=== PATIENT | male | born 1965 | race African-American/Black ===

== ENCOUNTER 2017-11-12 11:58 | Emergency (ER) | payer MEDICAID ==
[~2017-11-12] VITALS: Ht 182.9 cm; Wt 110.0 kg
[2017-11-12] MEDS ORDERED: ASPIRIN 325MG EC TABLET PO ONE (13:00)
[2017-11-12 13:12] LABS: BASOPHILS % 0.4 % (0.0-2.0); HEMATOCRIT. 46.7 % (42.0-52.0); HEMOGLOBIN. 16.5 g/dL (14.0-18.0); LYMPHOCYTES % 29.7 % (20.0-50.0); MEAN CORPUSCULAR VOLUME 90.6 fL (80.0-94.0); MEAN PLATELET VOLUME 8.9 fl (7.4-10.4); NEUTROPHILS % 59.9 % (40.0-76.0); PLATELET 243 x1000/uL (130-400); RED BLOOD CELL COUNT 5.15 mill/uL (4.7-6.1); RED CELL DISTRIBUTION WIDTH 12.7 % (11.6-14.6)
[2017-11-12 13:25] LABS: CHLORIDE 107 mEq/L (98-107)
[2017-11-12 13:26] LABS: PROTHROMBIN TIME 10.7 sec (9.4-11.6)
[2017-11-12 14:15] LABS: *AMPHETAMINES SCREEN URINE NEGATIVE (NEGATIVE); *BARBITURATES SCREEN URINE NEGATIVE (NEGATIVE); *BENZODIAZEPINES SCREEN URINE NEGATIVE (NEGATIVE); *COCAINE SCREEN URINE NEGATIVE (NEGATIVE); CANNABINOID URINE SCREEN PRESUMTIVE POSITIVE (NEGATIVE); METHADONE URINE SCREEN NEGATIVE (NEGATIVE); OPIATES URINE SCREEN NEGATIVE (NEGATIVE); PHENCYCLIDINE URINE SCREEN NEGATIVE (NEGATIVE)
[2017-11-12 16:48] LABS: CLARITY URINE CLEAR (CLEAR); COLOR URINE YELLOW (YELLOW); KETONES URINE NEGATIVE (NEGATIVE); LEUKOCYTE ESTERASE URINE NEGATIVE (NEGATIVE); NITRITE URINE NEGATIVE (NEGATIVE); OCCULT BLOOD URINE NEGATIVE (NEGATIVE); PH URINE 8.5 (4.5-8.0); PROTEIN URINE NEGATIVE (NEGATIVE); SPECIFIC GRAVITY URINE 1.011 (1.005-1.030); UROBILINOGEN URINE 0.2 E.U./dL (0.2-1.0)
[2017-11-12] MEDS ORDERED: CLONIDINE 0.2MG TABLET PO ONE (17:00)
[2017-11-12] MEDS ORDERED: IPRATROPIUM/ALBUTEROL 0.5-3(2.5)MG/3ML NEB HHN ONE (18:15)
[2017-11-12 18:45] VITALS: BP 135/78
== END 2017-11-12 19:10 | disposition home or self-care (01) ==
LOC: ER 13:07
DX: J06.9 Acute upper respiratory infection, unspecified (principal); F12.10 Cannabis abuse, uncomplicated; E86.0 Dehydration; D72.821 Monocytosis (symptomatic); J44.9 Chronic obstructive pulmonary disease, unspecified; M19.90 Unspecified osteoarthritis, unspecified site; F17.200 Nicotine dependence, unspecified, uncomplicated; Z88.8 Allergy status to other drugs, medicaments and biological substances
CPT/HCPCS: 36415; 71045; 80053; 80305; 81003; 83880; 84484; 85025; 85610; 93005; 94640; 99285; J7620

== ENCOUNTER 2018-08-19 12:08 | Inpatient (IN) | payer SELFPAY ==
[~2018-08-19] VITALS: Ht 182.9 cm; Wt 116.6 kg
[2018-08-19] MEDS ORDERED: IPRATROPIUM BROMIDE (0.02%) 0.5MG/2.5ML NEB HHN STA (12:45)
[2018-08-19] MEDS ORDERED: ASPIRIN 81MG TABLET PO ONE (12:45)
[2018-08-19] MEDS ORDERED: METHYLPREDNISOLONE SOD SUCC 125 MG/2 ML VIAL IV STA (12:45)
[2018-08-19] MEDS ORDERED: ALBUTEROL (0.083%) 2.5MG/3ML NEB HHN STA (12:45)
[2018-08-19] MEDS ORDERED: CLONIDINE 0.1MG TABLET PO ONE (13:00)
[2018-08-19 14:56] LABS: BASOPHILS % 0.2 % (0.0-2.0); EOSINOPHILS % 1.2 % (0.0-5.0); HEMATOCRIT. 46.2 % (42.0-52.0); HEMOGLOBIN. 15.6 g/dL (14.0-18.0); LYMPHOCYTES % 27.9 % (20.0-50.0); MEAN CORPUSCULAR VOLUME 91.8 fL (80.0-94.0); MEAN PLATELET VOLUME 9.7 fl (7.4-10.4); MONOCYTES % 8.5 % (2.0-8.0); NEUTROPHILS % 62.2 % (40.0-76.0); PLATELET 239 x1000/uL (130-400); RED BLOOD CELL COUNT 5.03 mill/uL (4.7-6.1); RED CELL DISTRIBUTION WIDTH 12.6 % (11.6-14.6)
[2018-08-19 14:58] LABS: CHLORIDE 108 mEq/L (98-107)
[2018-08-19 15:01] LABS: PARTIAL THROMBOPLASTIN TIME 29.1 sec (23.4-31.0); PROTHROMBIN TIME 10.2 sec (9.1-11.1)
[2018-08-19] MEDS ORDERED: ALBUTEROL (0.5%) 2.5MG/0.5ML NEB HHN ONE (15:02)
[2018-08-19 21:50] VITALS: BP 162/76
[2018-08-19] MEDS ORDERED: IPRATROPIUM/ALBUTEROL 0.5-3(2.5)MG/3ML NEB INH PRN (22:45)
[2018-08-19] MEDS ORDERED: HYDROCODONE/APAP 7.5/325MG 1 TAB TABLET PO PRN (22:45)
[2018-08-19] MEDS ORDERED: HYDRALAZINE 20MG/ML VIAL IV PRN (22:45)
[2018-08-19] MEDS ORDERED: DIPHENHYDRAMINE 50MG/ML VIAL IV PRN (22:45)
[2018-08-19] MEDS ORDERED: ACETAMINOPHEN 650MG SUPP PR PRN (22:45)
[2018-08-19] MEDS ORDERED: ACETAMINOPHEN 325MG TABLET PO PRN (22:45)
[2018-08-19] MEDS ORDERED: MAGNESIUM/ALUMINUM HYDROXIDE/SIMETHICONE 30ML UDC PO PRN (22:45)
[2018-08-19] MEDS ORDERED: ONDANSETRON HCL 4MG/2ML INJ IV PRN (22:45)
[2018-08-19] MEDS ORDERED: DOCUSATE SODIUM 100MG CAPSULE PO PRN (22:45)
[2018-08-19] MEDS ORDERED: HYDROCODONE/ACETAMINOPHEN 5/325MG TABLET PO PRN (22:45)
[2018-08-19] MEDS ORDERED: NA PHOS,M-B/NA PHOS,DI-BA ENEMA 118ML PR PRN (22:45)
[2018-08-19] MEDS ORDERED: ACETAMINOPHEN 650MG/20.3ML UDC GT PRN (22:45)
[2018-08-19] MEDS ORDERED: GUAIFENESIN 200MG/10ML SUGAR FREE UDC PO PRN (22:45)
[2018-08-19] MEDS ORDERED: CLONIDINE 0.1MG TABLET PO PRN (22:45)
[2018-08-19] MEDS ORDERED: HYDRALAZINE 10 MG in SODIUM CHLORIDE 0.9% 49.5 ML IV PRN (23:15)
[2018-08-19] MEDS: SODIUM CHLORIDE 0.9% INJ 3ML FLUSH IVF SCH (23:58)
[2018-08-19] MEDS: AMLODIPINE 10MG TABLET PO SCH (23:58)
[2018-08-20] MEDS: IPRATROPIUM/ALBUTEROL 0.5-3(2.5)MG/3ML NEB INH SCH ×4 (01:38→21:21)
[2018-08-20 04:00] VITALS: BP 151/84
[2018-08-20] MEDS: METHYLPREDNISOLONE SOD SUCC 125 MG/2 ML VIAL IV SCH ×4 (05:16→18:00)
[2018-08-20] MEDS: SODIUM CHLORIDE 0.9% INJ 3ML FLUSH IVF SCH ×3 (05:17→21:04)
[2018-08-20 05:54] LABS: CLARITY URINE CLEAR (CLEAR); COLOR URINE YELLOW (YELLOW); KETONES URINE NEGATIVE (NEGATIVE); LEUKOCYTE ESTERASE URINE NEGATIVE (NEGATIVE); NITRITE URINE NEGATIVE (NEGATIVE); OCCULT BLOOD URINE NEGATIVE (NEGATIVE); PH URINE 7.5 (4.5-8.0); PROTEIN URINE NEGATIVE (NEGATIVE); SPECIFIC GRAVITY URINE 1.016 (1.005-1.030); UROBILINOGEN URINE 0.2 E.U./dL (0.2-1.0)
[2018-08-20 06:09] LABS: METHADONE URINE SCREEN NEGATIVE (NEGATIVE); OPIATES URINE SCREEN PRESUMTIVE POSITIVE (NEGATIVE)
[2018-08-20 06:10] LABS: *AMPHETAMINES SCREEN URINE NEGATIVE (NEGATIVE); *BARBITURATES SCREEN URINE NEGATIVE (NEGATIVE); *BENZODIAZEPINES SCREEN URINE NEGATIVE (NEGATIVE); *COCAINE SCREEN URINE NEGATIVE (NEGATIVE); CANNABINOID URINE SCREEN PRESUMTIVE POSITIVE (NEGATIVE); PHENCYCLIDINE URINE SCREEN NEGATIVE (NEGATIVE)
[2018-08-20 07:29] LABS: HEMATOCRIT. 46.3 % (42.0-52.0); HEMOGLOBIN. 15.7 g/dL (14.0-18.0); LYMPHOCYTES % 10.2 % (20.0-50.0); MEAN CORPUSCULAR HEMOGLOBIN 31.1 pg (28.0-32.0); MEAN CORPUSCULAR VOLUME 91.8 fL (80.0-94.0); MEAN PLATELET VOLUME 9.4 fl (7.4-10.4); MONOCYTES % 3.8 % (2.0-8.0); PLATELET 248 x1000/uL (130-400); RED BLOOD CELL COUNT 5.04 mill/uL (4.7-6.1); RED CELL DISTRIBUTION WIDTH 12.7 % (11.6-14.6)
[2018-08-20 07:30] LABS: CHLORIDE 108 mEq/L (98-107)
[2018-08-20 07:38] LABS: LDL CHOLESTEROL 145 mg/dL (5-100)
[2018-08-20 07:39] LABS: HDL CHOLESTEROL 42 mg/dL (40-59)
[2018-08-20 08:00] VITALS: BP 170/90
[2018-08-20] MEDS: AMLODIPINE 10MG TABLET PO SCH (08:34)
[2018-08-20] MEDS: ENOXAPARIN 30MG/0.3ML SYR SUBCUT SCH ×2 (08:34→21:04)
[2018-08-20] MEDS ORDERED: ENOXAPARIN 40MG/0.4ML SYR SUBCUT SCH (09:00)
[2018-08-20 12:00] VITALS: BP 160/90
[2018-08-20] MEDS: IBUPROFEN 600MG TABLET PO SCH ×2 (13:06→21:03)
[2018-08-20] MEDS: METHYL SALICYLATE/MENTHOL CREAM 85GM TOP SCH ×2 (13:06→18:00)
[2018-08-20 16:00] VITALS: BP 166/86
[2018-08-20 20:00] VITALS: BP 147/87
[2018-08-21] VITALS: BP 134/77
[2018-08-21] MEDS: IPRATROPIUM/ALBUTEROL 0.5-3(2.5)MG/3ML NEB INH SCH ×2 (00:58→08:06)
[2018-08-21 04:00] VITALS: BP 150/85
[2018-08-21] MEDS: METHYLPREDNISOLONE SOD SUCC 125 MG/2 ML VIAL IV SCH ×3 (05:31→12:00)
[2018-08-21] MEDS: METHYL SALICYLATE/MENTHOL CREAM 85GM TOP SCH ×4 (05:31→12:00)
[2018-08-21] MEDS: IBUPROFEN 600MG TABLET PO SCH (05:37)
[2018-08-21] MEDS: SODIUM CHLORIDE 0.9% INJ 3ML FLUSH IVF SCH (05:38)
[2018-08-21] MEDS: ENOXAPARIN 30MG/0.3ML SYR SUBCUT SCH (07:50)
[2018-08-21] MEDS: AMLODIPINE 10MG TABLET PO SCH (07:50)
[2018-08-21 08:00] VITALS: BP 145/93
[2018-08-21] MEDS ORDERED: P50 MT (10:24)
[2018-08-21] MEDS ORDERED: FLUT1DIS3 INH (10:24)
[2018-08-21] MEDS ORDERED: ALBU90AE INH (10:24)
[2018-08-21 11:18] VITALS: BP 152/86
[2018-08-21 12:00] VITALS: BP 152/86
== END 2018-08-21 13:28 | disposition home or self-care (01) | DRG 140 ==
LOC: ER 12:08 → 8WST 15:40 → ENRESERV 19:50
PROVIDERS: ADMIT Family Medicine; ATTEND Family Medicine
DX: J44.1 Chronic obstructive pulmonary disease with (acute) exacerbation (principal); E66.9 Obesity, unspecified; F12.90 Cannabis use, unspecified, uncomplicated; F17.200 Nicotine dependence, unspecified, uncomplicated; I10 Essential (primary) hypertension; M19.90 Unspecified osteoarthritis, unspecified site; Z82.49 Family history of ischemic heart disease and other diseases of the circulatory system; Z83.3 Family history of diabetes mellitus; Z68.34 Body mass index [BMI] 34.0-34.9, adult
CPT/HCPCS: 36415; 71045; 73030; 80061; 80305; 83880; 84484; 93005; 94640; 96374; 99285; J1650; J2930; J7611; J7620

== ENCOUNTER 2018-09-04 12:43 | Emergency (ER) | payer SELFPAY ==
[~2018-09-04] VITALS: Ht 180.3 cm; Wt 112.0 kg
[~2018-09-04 12:43] MED LIST: ALBU90AE INH; FLUT1DIS3 INH; P50 MT
[2018-09-04 12:53] VITALS: BP 176/84
== END 2018-09-04 16:04 | disposition left against medical advice (07) ==
LOC: ER 15:40
DX: Z53.21 Procedure and treatment not carried out due to patient leaving prior to being seen by health care provider (principal)

== ENCOUNTER 2018-09-11 16:16 | Emergency (ER) | payer SELFPAY ==
[~2018-09-11] VITALS: Ht 182.9 cm; Wt 111.0 kg
[2018-09-11] MEDS ORDERED: IPRATROPIUM BROMIDE (0.02%) 0.5MG/2.5ML NEB HHN STA (18:23)
[2018-09-11] MEDS ORDERED: METHYLPREDNISOLONE SOD SUCC 125 MG/2 ML VIAL IV STA (18:23)
[2018-09-11] MEDS ORDERED: ALBUTEROL (0.083%) 2.5MG/3ML NEB HHN STA (18:23)
[2018-09-11] MEDS ORDERED: KETOROLAC 30MG/ML VIAL IV STA (18:23)
[2018-09-11 19:09] LABS: BASOPHILS % 0.2 % (0.0-2.0); EOSINOPHILS % 1.4 % (0.0-5.0); HEMATOCRIT. 44.2 % (42.0-52.0); HEMOGLOBIN. 14.6 g/dL (14.0-18.0); LYMPHOCYTES % 39.8 % (20.0-50.0); MEAN CORPUSCULAR HEMOGLOBIN 30.3 pg (28.0-32.0); MEAN CORPUSCULAR VOLUME 91.6 fL (80.0-94.0); MEAN PLATELET VOLUME 9.3 fl (7.4-10.4); NEUTROPHILS % 49.6 % (40.0-76.0); PLATELET 284 x1000/uL (130-400); RED BLOOD CELL COUNT 4.82 mill/uL (4.7-6.1); RED CELL DISTRIBUTION WIDTH 12.8 % (11.6-14.6)
[2018-09-11 19:15] LABS: CHLORIDE 109 mEq/L (98-107)
[2018-09-11 19:19] LABS: D-DIMER < 0.19 mg/L FEU (<0.50); PARTIAL THROMBOPLASTIN TIME 27.6 sec (23.4-31.0)
[2018-09-11 20:21] LABS: *AMPHETAMINES SCREEN URINE NEGATIVE (NEGATIVE); *BARBITURATES SCREEN URINE NEGATIVE (NEGATIVE); *BENZODIAZEPINES SCREEN URINE NEGATIVE (NEGATIVE); *COCAINE SCREEN URINE NEGATIVE (NEGATIVE)
[2018-09-11 20:22] LABS: CANNABINOID URINE SCREEN PRESUMTIVE POSITIVE (NEGATIVE); METHADONE URINE SCREEN NEGATIVE (NEGATIVE); OPIATES URINE SCREEN NEGATIVE (NEGATIVE); PHENCYCLIDINE URINE SCREEN NEGATIVE (NEGATIVE)
[2018-09-11] MEDS ORDERED: SODIUM CHLORIDE 0.9% 1,000 ML IV ONE (21:07)
[2018-09-11 23:10] VITALS: BP 134/76
== END 2018-09-11 23:09 | disposition home or self-care (01) ==
LOC: ER 16:16
DX: J44.1 Chronic obstructive pulmonary disease with (acute) exacerbation (principal); J45.901 Unspecified asthma with (acute) exacerbation; M54.12 Radiculopathy, cervical region; M79.601 Pain in right arm; M19.90 Unspecified osteoarthritis, unspecified site; I10 Essential (primary) hypertension; F15.10 Other stimulant abuse, uncomplicated; Z88.8 Allergy status to other drugs, medicaments and biological substances; Z79.899 Other long term (current) drug therapy
CPT/HCPCS: 36415; 71045; 80053; 80305; 83880; 84484; 85025; 85379; 85610; 85730; 93005; 93970; 94640; 96374; 96375; 99284; J1885; J2930; J7030; J7611

== ENCOUNTER 2018-11-08 12:43 | Emergency (ER) | payer SELFPAY ==
[~2018-11-08] VITALS: Ht 182.9 cm; Wt 118.0 kg
[2018-11-08] MEDS ORDERED: KETOROLAC 60MG/2ML VIAL IM ONE (23:15)
[2018-11-08 23:46] VITALS: BP 177/103
== END 2018-11-08 23:47 | disposition home or self-care (01) ==
LOC: ER 12:43
DX: J06.9 Acute upper respiratory infection, unspecified (principal); I10 Essential (primary) hypertension; J44.9 Chronic obstructive pulmonary disease, unspecified; M19.90 Unspecified osteoarthritis, unspecified site; F17.200 Nicotine dependence, unspecified, uncomplicated
CPT/HCPCS: 71045; 96372; 99283; J1885; Z7610

== ENCOUNTER 2018-11-26 12:56 | Emergency (ER) | payer SELFPAY ==
[~2018-11-26] VITALS: Ht 182.9 cm; Wt 107.0 kg
[2018-11-26] MEDS ORDERED: IBUPROFEN 800MG TABLET PO ONE (16:30)
[2018-11-26 17:47] VITALS: BP 160/88
== END 2018-11-26 17:48 | disposition home or self-care (01) ==
LOC: ER 13:11
DX: M54.6 Pain in thoracic spine (principal); R05 Cough; F12.10 Cannabis abuse, uncomplicated; M19.90 Unspecified osteoarthritis, unspecified site; J44.9 Chronic obstructive pulmonary disease, unspecified; I10 Essential (primary) hypertension; Z98.890 Other specified postprocedural states; Z79.899 Other long term (current) drug therapy; Z88.8 Allergy status to other drugs, medicaments and biological substances; V19.9XXA Pedal cyclist (driver) (passenger) injured in unspecified traffic accident, initial encounter; Y93.89 Activity, other specified; Y92.89 Other specified places as the place of occurrence of the external cause; Y99.8 Other external cause status
CPT/HCPCS: 71045; 99283

== ENCOUNTER 2019-04-21 22:18 | Emergency (ER) | payer SELFPAY ==
[~2019-04-21] VITALS: Ht 182.9 cm; Wt 113.3 kg
[2019-04-22] MEDS ORDERED: PREDNISONE 20MG TABLET PO STA (01:57)
[2019-04-22] MEDS ORDERED: HYDROCODONE/ACETAMINOPHEN 5/325MG TABLET PO ONE (02:00)
[2019-04-22] MEDS ORDERED: AMOXICILLIN/POTASSIUM CLAVULANATE 875/125MG TAB PO ONE (02:00)
[2019-04-22] MEDS ORDERED: LEVOFLOXACIN 500MG TABLET PO ONE (02:00)
[2019-04-22] MEDS ORDERED: IPRATROPIUM/ALBUTEROL 0.5-3(2.5)MG/3ML NEB HHN ONE (02:00)
[2019-04-22] MEDS ORDERED: IBUPROFEN 800MG TABLET PO ONE (02:00)
[2019-04-22] MEDS ORDERED: CLONIDINE 0.2MG TABLET PO ONE (03:00)
[2019-04-22 05:15] VITALS: BP 140/83
[2019-04-22] MEDS ORDERED: TETANUS, DIPHTHERIA, PERTUSSIS VAC/PF 0.5ML (>7YR OLD) IM ONE (05:15)
== END 2019-04-22 05:15 | disposition home or self-care (01) ==
LOC: ER 22:18
DX: M79.645 Pain in left finger(s) (principal); M19.90 Unspecified osteoarthritis, unspecified site; J44.9 Chronic obstructive pulmonary disease, unspecified; I10 Essential (primary) hypertension; M10.9 Gout, unspecified; F12.10 Cannabis abuse, uncomplicated; Z88.1 Allergy status to other antibiotic agents; Z79.899 Other long term (current) drug therapy
CPT/HCPCS: 71045; 73130; 90471; 90715; 99284; J7512; J7620

== ENCOUNTER 2021-09-21 07:35 | Emergency (ER) | payer MEDICAID ==
[~2021-09-21] VITALS: Ht 182.9 cm; Wt 111.0 kg
[~2021-09-21 07:35] MED LIST changes: +DILT30TA38 PO
[2021-09-21 09:55] LABS: BASOPHILS % 0.3 % (0.0-2.0); EOSINOPHILS % 1.1 % (0.0-5.0); HEMATOCRIT. 47.4 % (42.0-52.0); HEMOGLOBIN. 15.8 g/dL (14.0-18.0); LYMPHOCYTES % 31.8 % (20.0-50.0); MEAN CORPUSCULAR HEMOGLOBIN 30.4 pg (28.0-32.0); MEAN CORPUSCULAR VOLUME 91.4 fL (80.0-94.0); MEAN PLATELET VOLUME 9.6 fl (7.4-10.4); MONOCYTES % 7.3 % (2.0-8.0); NEUTROPHILS % 59.5 % (40.0-76.0); PLATELET 246 x1000/uL (130-400); RED BLOOD CELL COUNT 5.18 mill/uL (4.7-6.1); RED CELL DISTRIBUTION WIDTH 12.8 % (11.6-14.6)
[2021-09-21 10:02] LABS: CHLORIDE 111 mEq/L (98-107)
[2021-09-21 11:38] VITALS: BP 130/85
== END 2021-09-21 11:39 | disposition home or self-care (01) ==
LOC: ER 07:35
DX: R07.89 Other chest pain (principal); M25.512 Pain in left shoulder; I10 Essential (primary) hypertension; J44.9 Chronic obstructive pulmonary disease, unspecified; M19.90 Unspecified osteoarthritis, unspecified site; F12.10 Cannabis abuse, uncomplicated; Z88.8 Allergy status to other drugs, medicaments and biological substances
CPT/HCPCS: 36415; 71045; 73030; 80053; 84484; 85025; 93005; 99285

== ENCOUNTER 2023-10-28 11:18 | Inpatient (IN) | payer MEDICAID, OTHER ==
[~2023-10-28] VITALS: Ht 182.9 cm; Wt 108.0 kg
[~2023-10-28 11:18] MED LIST changes: +DILT30TA37 PO; -DILT30TA38 PO
[2023-10-28 12:15] LABS: BASOPHILS % 0.3 % (0.0-2.0); EOSINOPHILS % 0.8 % (0.0-5.0); HEMATOCRIT. 46.2 % (42.0-52.0); HEMOGLOBIN. 15.4 g/dL (14.0-18.0); LYMPHOCYTES % 24.8 % (20.0-50.0); MEAN CORPUSCULAR HEMOGLOBIN 31.1 pg (28.0-32.0); MEAN CORPUSCULAR HGB CONC 33.3 g/dL (31.0-37.0); MEAN CORPUSCULAR VOLUME 93.4 fL (80.0-94.0); MEAN PLATELET VOLUME 9.1 fl (7.4-10.4); MONOCYTES % 9.1 % (2.0-8.0); PLATELET 249 x1000/uL (130-400); RED BLOOD CELL COUNT 4.94 mill/uL (4.7-6.1); RED CELL DISTRIBUTION WIDTH 12.9 % (11.6-14.6); WHITE BLOOD COUNT 9.3 x1000/uL (4.5-11.0)
[2023-10-28 12:32] LABS: ALANINE AMINOTRANSFERASE 23 IU/L (10-49); ALBUMIN 4.5 g/dL (3.2-4.8); ASPARTATE AMINOTRANSFERASE 28 IU/L (<34); BILIRUBIN TOTAL 0.7 mg/dL (0.1-1.0); CALCIUM 9.2 mg/dL (8.7-10.4); CARBON DIOXIDE 23 mEq/L (21-32); CHLORIDE 110 mEq/L (98-107); CREATININE 1.3 mg/dL (0.6-1.3); GLUCOSE 96 mg/dL (70-105); POTASSIUM 4.3 mEq/L (3.5-5.1); PROTEIN TOTAL 7.5 g/dL (6.0-8.3); SODIUM 139 mEq/L (136-145); TROPONIN I HIGH SENSITIVITY 6 ng/L (3.0-53); UREA NITROGEN BLOOD 15 mg/dL (9-23)
[2023-10-28] MEDS: MORPHINE SULFATE 2 MG/ML CPJ (NOT FOR IM USE) IV NR (12:43)
[2023-10-28] MEDS: ASPIRIN 81MG TABLET PO NR (12:43)
[2023-10-28 14:11] LABS: D-DIMER 0.22 mg/L FEU (<0.50); INR 0.9; PROTHROMBIN TIME 10.4 sec (9.6-11.0)
[2023-10-28 14:12] LABS: CREATINE KINASE 311 IU/L (46-171)
[2023-10-28] MEDS: SODIUM CHLORIDE 0.9% 500 ML IV ONE (14:53)
[2023-10-28] MEDS ORDERED: ONDANSETRON HCL 4MG/2ML INJ IV PRN (15:00)
[2023-10-28] MEDS ORDERED: DIPHENHYDRAMINE 50MG/ML VIAL IV PRN (15:00)
[2023-10-28] MEDS ORDERED: IPRATROPIUM/ALBUTEROL 0.5-3(2.5)MG/3ML NEB HHN PRN (15:00)
[2023-10-28] MEDS: CLONIDINE 0.1MG TABLET PO PRN (15:10)
[2023-10-28 15:24] VITALS: BP 170/90; PULSE 71; RESP 20; TEMP 97.3
[2023-10-28 16:00] VITALS: BP 163/90; PULSE 68; RESP 18; TEMP 98
[2023-10-28] MEDS: SODIUM CHLORIDE 0.9% 1,000 ML IV SCH (17:15)
[2023-10-28 20:00] VITALS: BP 185/102; PULSE 66; RESP 17; TEMP 98.6
[2023-10-28] MEDS: HYDRALAZINE 20MG/ML VIAL IV PRN (21:15)
[2023-10-29] VITALS: BP 176/93; PULSE 80; RESP 18; TEMP 97.4
[2023-10-29 04:00] VITALS: BP 161/89; PULSE 70; RESP 14; TEMP 98
[2023-10-29 07:31] LABS: BASOPHILS % 0.2 % (0.0-2.0); HEMATOCRIT. 45.7 % (42.0-52.0); HEMOGLOBIN. 15.6 g/dL (14.0-18.0); LYMPHOCYTES % 28.2 % (20.0-50.0); MEAN CORPUSCULAR HGB CONC 34.1 g/dL (31.0-37.0); MEAN CORPUSCULAR VOLUME 90.9 fL (80.0-94.0); MEAN PLATELET VOLUME 9.7 fl (7.4-10.4); MONOCYTES % 7.4 % (2.0-8.0); NEUTROPHILS % 63.2 % (40.0-76.0); PLATELET 232 x1000/uL (130-400); RED BLOOD CELL COUNT 5.03 mill/uL (4.7-6.1); WHITE BLOOD COUNT 8.6 x1000/uL (4.5-11.0)
[2023-10-29 08:00] VITALS: BP 161/93; PULSE 71; RESP 15; TEMP 98.2
[2023-10-29 08:18] LABS: ALANINE AMINOTRANSFERASE 19 IU/L (10-49); ALBUMIN 4.1 g/dL (3.2-4.8); ASPARTATE AMINOTRANSFERASE 24 IU/L (<34); BILIRUBIN TOTAL 0.9 mg/dL (0.1-1.0); CALCIUM 8.9 mg/dL (8.7-10.4); CARBON DIOXIDE 22 mEq/L (21-32); CHLORIDE 111 mEq/L (98-107); CREATINE KINASE 228 IU/L (46-171); CREATININE 1.1 mg/dL (0.6-1.3); GLUCOSE 93 mg/dL (70-105); POTASSIUM 4.6 mEq/L (3.5-5.1); SODIUM 140 mEq/L (136-145); UREA NITROGEN BLOOD 10 mg/dL (9-23)
[2023-10-29 08:50] LABS: HEPATITIS B SURFACE ANTIGEN NEGATIVE (Negative); HEPATITIS C AB NON REACTIVE (Neg) (Negative)
[2023-10-29 12:00] VITALS: BP 171/119; PULSE 75; RESP 12; TEMP 98
[2023-10-29] MEDS: LOSARTAN 25 MG TABLET PO SCH (12:30)
[2023-10-29 16:00] VITALS: BP 114/77; PULSE 73; RESP 20; TEMP 98.4
[2023-10-29] MEDS: DOCUSATE SODIUM 250MG CAPSULE PO PRN (19:31)
[2023-10-29 20:00] VITALS: BP 171/91; PULSE 70; RESP 18; TEMP 98.1
[2023-10-29] MEDS: HYDRALAZINE 20MG/ML VIAL ONE (20:23)
[2023-10-30] VITALS: BP 168/83; PULSE 81; RESP 19; TEMP 98
[2023-10-30 04:00] VITALS: BP 163/93; PULSE 84; RESP 16; TEMP 98.1
[2023-10-30 08:00] VITALS: BP 193/98; PULSE 97; RESP 19; TEMP 97.9
[2023-10-30 09:55] LABS: BASOPHILS % 0.2 % (0.0-2.0); HEMATOCRIT. 47.9 % (42.0-52.0); HEMOGLOBIN. 16.1 g/dL (14.0-18.0); LYMPHOCYTES % 9.2 % (20.0-50.0); MEAN CORPUSCULAR HGB CONC 33.6 g/dL (31.0-37.0); MEAN CORPUSCULAR VOLUME 92.3 fL (80.0-94.0); MEAN PLATELET VOLUME 9.9 fl (7.4-10.4); MONOCYTES % 3.1 % (2.0-8.0); NEUTROPHILS % 87.5 % (40.0-76.0); PLATELET 271 x1000/uL (130-400); RED BLOOD CELL COUNT 5.19 mill/uL (4.7-6.1); RED CELL DISTRIBUTION WIDTH 13.3 % (11.6-14.6); WHITE BLOOD COUNT 10.5 x1000/uL (4.5-11.0)
[2023-10-30] MEDS: LOSARTAN 25 MG TABLET PO SCH (10:30)
[2023-10-30] MEDS: CARVEDILOL 6.25 MG TABLET PO SCH (10:30)
[2023-10-30 10:32] LABS: ALANINE AMINOTRANSFERASE 20 IU/L (10-49); ALBUMIN 4.6 g/dL (3.2-4.8); ASPARTATE AMINOTRANSFERASE 21 IU/L (<34); BILIRUBIN TOTAL 0.6 mg/dL (0.1-1.0); CALCIUM 9.4 mg/dL (8.7-10.4); CARBON DIOXIDE 18 mEq/L (21-32); CHLORIDE 111 mEq/L (98-107); CREATINE KINASE 178 IU/L (46-171); GLUCOSE 105 mg/dL (70-105); POTASSIUM 3.9 mEq/L (3.5-5.1); PROTEIN TOTAL 7.8 g/dL (6.0-8.3); SODIUM 139 mEq/L (136-145); UREA NITROGEN BLOOD 11 mg/dL (9-23)
[2023-10-30] MEDS: ACETAMINOPHEN 325MG TABLET PO PRN (11:10)
[2023-10-30 12:00] VITALS: BP 205/102; PULSE 92; RESP 20; TEMP 98.5
[2023-10-30] MEDS: SPIRONOLACTONE 25MG TABLET PO SCH (13:03)
[2023-10-30] MEDS: HYDROCHLOROTHIAZIDE 12.5MG CAPSULE PO SCH (13:04)
[2023-10-30] MEDS: AMLODIPINE 10MG TABLET PO SCH (13:04)
[2023-10-30 16:00] VITALS: BP 180/100; PULSE 101; RESP 20; TEMP 98.8
[2023-10-30 17:10] LABS: CLARITY URINE CLEAR (CLEAR); COLOR URINE YELLOW (YELLOW); GLUCOSE URINE NEGATIVE (NEGATIVE); KETONES URINE 1+ (NEGATIVE); LEUKOCYTE ESTERASE URINE NEGATIVE (NEGATIVE); NITRITE URINE NEGATIVE (NEGATIVE); OCCULT BLOOD URINE NEGATIVE (NEGATIVE); PH URINE 5.5 (4.5-8.0); PROTEIN URINE NEGATIVE (NEGATIVE); SPECIFIC GRAVITY URINE 1.006 (1.005-1.030); UROBILINOGEN URINE 0.2 E.U./dL (0.2-1.0)
[2023-10-30 17:24] LABS: *AMPHETAMINES SCREEN URINE NEGATIVE (NEGATIVE); *BARBITURATES SCREEN URINE NEGATIVE (NEGATIVE); *BENZODIAZEPINES SCREEN URINE NEGATIVE (NEGATIVE); *COCAINE SCREEN URINE NEGATIVE (NEGATIVE); CANNABINOID URINE SCREEN PRESUMPTIVE POSITIVE (NEGATIVE); ECSTASY MDMA SCREEN URINE NEGATIVE (NEGATIVE); METHADONE URINE SCREEN Neg (NEGATIVE); OPIATES URINE SCREEN NEGATIVE (NEGATIVE); PHENCYCLIDINE URINE SCREEN NEGATIVE (NEGATIVE)
[2023-10-30 20:00] VITALS: BP 170/95; PULSE 104; RESP 17; TEMP 98.7
[2023-10-31] VITALS: BP 140/91; PULSE 92; RESP 19; TEMP 98.9
[2023-10-31 04:28] VITALS: BP 129/82; PULSE 92; RESP 17; TEMP 97.6
[2023-10-31 08:00] VITALS: BP 156/106; PULSE 105; RESP 21; TEMP 98.6
[2023-10-31 12:00] VITALS: BP 154/84; PULSE 94; RESP 14; TEMP 98.7
[2023-10-31] MEDS ORDERED: DILT30TA37 PO (12:04)
[2023-10-31] MEDS ORDERED: COR6 PO (12:04)
[2023-10-31] MEDS ORDERED: LOSA25TA26 PO (12:04)
[2023-10-31] MEDS ORDERED: HYDR12.54 MT (12:04)
[2023-10-31] MEDS ORDERED: SPIR25TA PO (12:04)
[2023-10-31] MEDS ORDERED: AMLO10TA80 PO (12:04)
[2023-10-31 15:12] VITALS: BP 154/84; PULSE 94; TEMP 98.6; O2SAT 98
[2023-10-31] MEDS ORDERED: LOSARTAN 25 MG TABLET PO SCH ×2 (17:00)
== END 2023-10-31 16:00 | disposition home or self-care (01) | DRG 203 ==
LOC: ER 11:18 → 3WST 13:51 → EDBEDREQ 14:04
PROVIDERS: ADMIT Internal Medicine; ATTEND Internal Medicine
DX: M94.0 Chondrocostal junction syndrome [Tietze] (principal); M62.82 Rhabdomyolysis; I50.32 Chronic diastolic (congestive) heart failure; I11.0 Hypertensive heart disease with heart failure; F10.20 Alcohol dependence, uncomplicated; I16.0 Hypertensive urgency; J44.9 Chronic obstructive pulmonary disease, unspecified; I16.1 Hypertensive emergency; I45.2 Bifascicular block; F19.90 Other psychoactive substance use, unspecified, uncomplicated; Z87.891 Personal history of nicotine dependence; Z83.3 Family history of diabetes mellitus; Z82.49 Family history of ischemic heart disease and other diseases of the circulatory system; Z79.899 Other long term (current) drug therapy; Z79.51 Long term (current) use of inhaled steroids; Z59.00 Homelessness unspecified
CPT/HCPCS: 36415; 71045; 80053; 80305; 81003; 82550; 83880; 84484; 85025; 85379; 86705; 87340; 93005; 93306; 93971; 99285; J0360; J2270; J7030

== ENCOUNTER 2023-11-23 22:00 | Emergency (ER) | payer OTHER ==
[~2023-11-23] VITALS: Ht 182.9 cm; Wt 104.0 kg
[~2023-11-23 22:00] MED LIST changes: +AMLO10TA80 PO; +COR6 PO; +HYDR12.54 MT; +LOSA25TA26 PO; -P50 MT; +SPIR25TA PO
[2023-11-23 22:12] VITALS: TEMP 98.5; O2SAT 99
[2023-11-23 23:41] LABS: BASOPHILS % 0.3 % (0.0-2.0); EOSINOPHILS % 1.6 % (0.0-5.0); HEMATOCRIT. 40.8 % (42.0-52.0); MEAN CORPUSCULAR HEMOGLOBIN 31.1 pg (28.0-32.0); MEAN CORPUSCULAR HGB CONC 34.4 g/dL (31.0-37.0); MEAN CORPUSCULAR VOLUME 90.5 fL (80.0-94.0); MEAN PLATELET VOLUME 9.2 fl (7.4-10.4); MONOCYTES % 6.7 % (2.0-8.0); NEUTROPHILS % 64.4 % (40.0-76.0); PLATELET 259 x1000/uL (130-400); RED BLOOD CELL COUNT 4.51 mill/uL (4.7-6.1); RED CELL DISTRIBUTION WIDTH 12.8 % (11.6-14.6); WHITE BLOOD COUNT 10.5 x1000/uL (4.5-11.0)
[2023-11-23 23:57] LABS: ALANINE AMINOTRANSFERASE 27 IU/L (10-49); ALBUMIN 4.2 g/dL (3.2-4.8); ASPARTATE AMINOTRANSFERASE 26 IU/L (<34); BILIRUBIN TOTAL 0.4 mg/dL (0.1-1.0); CALCIUM 8.8 mg/dL (8.7-10.4); CARBON DIOXIDE 24 mEq/L (21-32); CHLORIDE 110 mEq/L (98-107); CREATININE 1.2 mg/dL (0.6-1.3); GLUCOSE 109 mg/dL (70-105); POTASSIUM 3.9 mEq/L (3.5-5.1); PROTEIN TOTAL 6.9 g/dL (6.0-8.3); SODIUM 139 mEq/L (136-145); TROPONIN I HIGH SENSITIVITY 10 ng/L (3.0-53); UREA NITROGEN BLOOD 15 mg/dL (9-23)
[2023-11-24 01:44] LABS: CLARITY URINE CLEAR (CLEAR); COLOR URINE YELLOW (YELLOW); GLUCOSE URINE NEGATIVE (NEGATIVE); KETONES URINE NEGATIVE (NEGATIVE); LEUKOCYTE ESTERASE URINE NEGATIVE (NEGATIVE); NITRITE URINE NEGATIVE (NEGATIVE); OCCULT BLOOD URINE NEGATIVE (NEGATIVE); PROTEIN URINE NEGATIVE (NEGATIVE); SPECIFIC GRAVITY URINE 1.022 (1.005-1.030)
[2023-11-24] MEDS: HYDRALAZINE 20MG/ML VIAL IV ONE (04:01)
[2023-11-24 04:50] VITALS: BP 162/76; PULSE 73; RESP 14
[2023-11-24 04:53] LABS: TROPONIN I HIGH SENSITIVITY 11 ng/L (3.0-53)
== END 2023-11-24 05:21 | disposition home or self-care (01) ==
LOC: ER 22:00
DX: I10 Essential (primary) hypertension (principal); R07.89 Other chest pain; J44.1 Chronic obstructive pulmonary disease with (acute) exacerbation; Z88.8 Allergy status to other drugs, medicaments and biological substances; Z98.890 Other specified postprocedural states; Z79.899 Other long term (current) drug therapy
CPT/HCPCS: 80053; 85025; 84484 ×2; 36415 ×2; 71045; 93005; 99285; 81003; 96374; J0360; Z7610

== ENCOUNTER 2025-05-20 22:11 | Emergency (ER) | payer OTHER ==
[~2025-05-20] VITALS: Ht 182.9 cm; Wt 122.0 kg
[2025-05-20 22:17] VITALS: O2SAT 95
[2025-05-20 22:33] LABS: BASOPHILS % 0.3 % (0.0-2.0); EOSINOPHILS % 1.5 % (0.0-5.0); HEMATOCRIT. 42.4 % (42.0-52.0); HEMOGLOBIN. 14.2 g/dL (14.0-18.0); LYMPHOCYTES % 39.1 % (20.0-50.0); MEAN PLATELET VOLUME 8.9 fl (7.4-10.4); MONOCYTES % 7.3 % (2.0-8.0); NEUTROPHILS % 51.8 % (40.0-76.0); PLATELET 237 x1000/uL (130-400); RED BLOOD CELL COUNT 4.62 mill/uL (4.7-6.1); RED CELL DISTRIBUTION WIDTH 12.6 % (11.6-14.6)
[2025-05-20 22:43] LABS: INR 1.0
[2025-05-20 22:48] LABS: CREATININE 1.3 mg/dL (0.6-1.3); TROPONIN I HIGH SENSITIVITY 4 ng/L (3.0-53); UREA NITROGEN BLOOD 12 mg/dL (9-23)
[2025-05-20 22:50] LABS: ASPARTATE AMINOTRANSFERASE 20 IU/L (<34); BILIRUBIN DIRECT 0.1 mg/dL (<=3.0); BILIRUBIN TOTAL 0.5 mg/dL (0.1-1.0); PROTEIN TOTAL 6.1 g/dL (6.0-8.3)
[2025-05-21 00:20] VITALS: BP 133/85; PULSE 77; RESP 14; TEMP 36.7; O2SAT 98
== END 2025-05-21 00:42 | disposition home or self-care (01) ==
LOC: ER 22:11 → CMPBEDREQ 05-21 13:41
DX: R42 Dizziness and giddiness (principal); I10 Essential (primary) hypertension; F10.90 Alcohol use, unspecified, uncomplicated; F12.90 Cannabis use, unspecified, uncomplicated; J44.9 Chronic obstructive pulmonary disease, unspecified; M19.90 Unspecified osteoarthritis, unspecified site; Z79.51 Long term (current) use of inhaled steroids; Z79.899 Other long term (current) drug therapy; Z83.3 Family history of diabetes mellitus; Y90.9 Presence of alcohol in blood, level not specified
CPT/HCPCS: 36415; 71045; 80048; 80076; 84484; 85025; 99284